=== PATIENT | female | born 1970 | race Caucasian/White ===

== ENCOUNTER 2022-03-29 06:10 | Day surgery (SDC) | payer OTHER ==
[2022-03-25 14:13] VITALS: BMI 26.0
[2022-03-29] MEDS ORDERED: PROPOFOL 20 ML ONE ×2 (08:24→08:42)
[2022-03-29] MEDS ORDERED: Lidocaine 1% PF 5 ML VIAL ONE (08:41)
== END 2022-03-29 09:20 | disposition home or self-care (01) ==
LOC: CSHSDC 06:10
PROVIDERS: ATTEND Internal Medicine Gastroenterology
PROC: 0DBN8ZZ Excision of Sigmoid Colon, Via Natural or Artificial Opening Endoscopic (ICD-10-PCS; principal; 2022-03-29)
DX: Z12.11 Encounter for screening for malignant neoplasm of colon (principal); K62.1 Rectal polyp; K64.9 Unspecified hemorrhoids; E78.5 Hyperlipidemia, unspecified; I73.9 Peripheral vascular disease, unspecified; I71.9 Aortic aneurysm of unspecified site, without rupture; K21.9 Gastro-esophageal reflux disease without esophagitis; J30.9 Allergic rhinitis, unspecified; F17.210 Nicotine dependence, cigarettes, uncomplicated; Z88.1 Allergy status to other antibiotic agents; Z88.8 Allergy status to other drugs, medicaments and biological substances; Z79.899 Other long term (current) drug therapy; Z98.890 Other specified postprocedural states
CPT/HCPCS: 88305; J2704